=== PATIENT | male | born 1955 | race Caucasian/White ===

== ENCOUNTER 2017-11-09 07:26 | Emergency (ER) | payer BC ==
--- NOTE | 2017-11-09 07:55 | Emergency Department Record ---
History of Present Illness - General Chief Complaint: Dizziness Stated Complaint: BLURRED VISION, OFF BALANCE Time Seen by Provider: 11/09/17 07:54 Source: Patient Mode of Arrival: Ambulatory Limitations: No limitations - History of Present Illness Initial Comments: The patient is here due to a 3 day hx of first double vision then feeling like his balance is off. The patient states the diplopia has resolved but the problem with his balance has persisted. There was a mild head pressure behind his L eye yesterday but that has resolved. The patient states now the symptoms are only with walking and he has to concentrate to keep his balance. There is no reported CP, SOB, blurred vision, or any speech difficulties, swallowing issues or arm or leg weakness. He denies any hx of similar issues. The patient does take a baby ASA daily but did not take it today. MD Complaint: Dizziness, Difficulty walking Onset/Timin -: Days(s) Timing: Sudden onset Description: Difficulty walking, Off-balance, Other History of Same: Yes (2 years ago) History of Trauma: No Severity: Moderate Improves With: Nothing Worsens With: Nothing Associated Symptoms: Denies other symptoms - [place] Coma Scale Eye Response: (4) Open spontaneously Motor Response: (6) Obeys commands Verbal Response: (5) Oriented [place] Total: 15 - Related Data Home Medications Medication Instructions Recorded Confirmed Last Taken Atorvastatin Calcium 40 mg PO QHS 11/09/17 11/09/17 Unknown Bp Med-Unsure Of Name 11/09/17 Unknown Glipizide 10 mg PO BID 11/09/17 11/09/17 Unknown Metformin HCl 500 mg PO BID 11/09/17 11/09/17 Unknown Metoprolol Succinate [Toprol Xl] 50 mg PO BID 11/09/17 11/09/17 Unknown Tamsulosin HCl [Flomax] 0.4 mg PO DAILY 11/09/17 11/09/17 Unknown Allergies Allergy/AdvReac Type Severity Reaction Status Date / Time No Known Drug Allergies Allergy Verified 11/09/17 07:28 Travel Screening - Travel/Exposure Within Last 30 Days Have you traveled within the last 30 days?: No - Travel/Exposure Within Last Year Have you traveled outside the [place] in the last year?: No - Additonal Travel Details Have you been exposed to anyone with a communicable illness?: No - Travel Symptoms Symptom Screening: None Review of Systems Constitutional: Denies: Chills, Fever Eyes: Reports: Vision change. Denies: Eye discharge, Eye pain ENT: Denies: Congestion Respiratory: Denies: Cough, Dyspnea Cardiovascular: Denies: Arrhythmia, Chest pain Endocrine: Denies: Fatigue Gastrointestinal: Denies: Abdominal pain Genitourinary: Denies: Dysuria Musculoskeletal: Denies: Arthralgia Past Medical History - SOCIAL HISTORY Smoking Status: Current every day smoker Alcohol Use: Occasional Drug Use: None - RESPIRATORY Hx Respiratory Disorders: No - CARDIOVASCULAR Hx Cardio Disorders: Yes Hx Hypertension: Yes - NEURO Hx Neuro Disorders: No - GI Hx GI Disorders: Yes Hx Reflux: Yes - Hx Genitourinary Disorders: Yes Hx Prostate Problems: Yes - ENDOCRINE Hx Endocrine Disorders: Yes Hx Diabetes: Yes (type 2) - MUSCULOSKELETAL Hx Musculoskeletal Disorders: No - PSYCH Hx Psych Problems: No - HEMATOLOGY/ONCOLOGY Hx Hematology/Oncology Disorders: No Family Medical History Any Significant Family History?: Yes Hx Diabetes: Grandparents Hx Heart Disease: Father Physical Exam - General General Appearance: Alert, Oriented x3, Cooperative, No acute distress - Head Head exam: Atraumatic, Normocephalic, Normal inspection - Eye Eye exam: Normal appearance, PERRL, EOMI - ENT ENT exam: Normal exam, Mucous membranes moist, Normal external ear exam, Normal orophraynx, TM's normal bilaterally Throat exam: Normal inspection. negative: Tonsillar erythema, Tonsillar exudate - Neck Neck exam: Normal inspection, Full ROM. negative: Lymphadenopathy, Meningismus , Tenderness - Respiratory Respiratory exam: Normal lung sounds bilaterally. negative: Respiratory distress - Cardiovascular Cardiovascular Exam: Regular rate, Normal rhythm, Normal heart sounds - GI/Abdominal GI/Abdominal exam: Soft, Normal bowel sounds. negative: Tenderness - Extremities Extremities exam: Normal inspection, Full ROM, Normal capillary refill. negative: Tenderness - Neurological Neurological exam: Alert, Normal gait, Oriented X3, Other (There is normal finger to nose testing but the patient does have a mildy Pos Rhomberg test.). negative: Abnormal gait, Motor sensory deficit Course Vital Signs 11/09/17 07:38 Temperature 97.7 F Pulse Rate 59 L Respiratory 16 Rate Blood Pressure 163/96 Pulse Ox 100 - Reevaluation(s) Reevaluation #1: I did discuss the issues with the patient and the need for hospital admission for the cerebellar CVA and he did agree to the transfer to [facility]. We are attempting to contact the stroke team presently. 11/09/17 09:26 Reevaluation #2: The patient does accept the plan for the admission to [facility]. I did discuss the case with Dr. Zhang who is the Stroke Neurologist at [facility] and he does accept the patient for admission. I did offer the patient an ambulance ride to [facility] but he is refusing and states his will drive him there. I did discuss the risks of refusing the ambulance and he does accept the risks. 11/09/17 09:38 Reevaluation #3: The patient is doing well. 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 The patient has been fairly uncooperative while in the ED due to not being happy about being here in the ED and needing to be transferred. 11/09/17 10:00 Reevaluation #4: The patient has been ambulating in the ED with no significant difficulty. We are still waiting on a bed at [facility] prior to completing his transfer. 11/09/17 13:00 Reevaluation #5: I did again discuss the need to be transferred by ambulance but the patient AGAIN is refusing. I explained by NOT taking the ambulance the patient could get lost, not correctly find his room, his CVA could worsen and he could become disabled and even . The patient understands and accepts the risks and will sign an AMA form attesting to that. 11/09/17 14:39 Medical Decision Making - Data Complexity MDM Data: Labs Ordered and/or Reviewed, X-Ray Ordered and/or Reviewed, EKG Ordered and/or Reviewed - Lab Data Result diagrams: 11/09/17 08:15 11/09/17 08:15 - EKG Data -: EKG Interpreted by Me EKG: No Acute Changes - Radiology Data Radiology results: Report reviewed (CXR: Neg Head CT: age indeterminent infarct L inferior cerebellar hemisphere, O/W neg for acute changes.) Disposition Disposition: Transfer Clinical Impression: CVA (cerebral vascular accident) Qualifiers: CVA mechanism: unspecified Qualified Code(s): I63.9 - Cerebral infarction, unspecified Disposition: Acute Care Hospital Transfer Transfer To: [facility] Reason For Transfer: Stroke Accepting Physician: Rosick Time Discussed w/Accepting Physician: 09:40 Condition: (2) Stable Forms: Patient Portal Access Time of Disposition: 09:40 Quality - Quality Measures Quality Measures: N/A - Blood Pressure Screening View Details: Yes Does Patient Have Any of the Following: Active Dx of HTN Blood Pressure Classification: Pre-Hypertensive BP Reading Systolic Measurement: 139 Diastolic Measurement: 83 Screening for High Blood Pressure: Patient Exclusion, Hx of HTN [G9744]
[2017-11-09 08:27] LABS: BASO % 0.4 % (0-6); EOS % 2.9 % (0-6); HEMATOCRIT 46.6 % (42.0-52.0); HEMOGLOBIN 16.9 gm/dl (14.0-18.0); LYMPH % 23.9 % (16-45); MEAN CELL VOLUME 86.8 fl (81-97); MEAN CORPUSCULAR HEMOGLOBIN 31.5 pg (27-33); MEAN CORPUSCULAR HGB CONC 36.3 g/dl (32-36); MEAN PLATELET VOLUME 10.4 fl (7.4-10.4); MONO % 6.8 % (0-9); PLATELET COUNT 166 K/uL (130-400); RED BLOOD COUNT 5.37 M/uL (4.40-5.70); RED CELL DISTRIBUTION WIDTH 12.4 % (11.5-14.5); WHITE BLOOD COUNT W/O DIFF 8.2 K/uL (4.2-12.2)
[2017-11-09 08:34] LABS: BLOOD UREA NITROGEN 17 mg/dL (8-23); CREATININE 0.8 mg/dL (0.7-1.2); EST GLOMERULAR FILTRATION RATE > 60 mL/min
[2017-11-09 08:35] LABS: TOTAL PROTEIN 7.3 g/dL (6.6-8.7)
[2017-11-09 08:37] LABS: GLUCOSE,RANDOM 320 mg/dL (74-109)
[2017-11-09 08:38] LABS: INR 0.9; PARTIAL THROMBOPLASTIN TIME 26.6 SECONDS (24.5-39.1); PROTHROMBIN TIME (PATIENT) 9.6 SECONDS (9.5-12.1)
[2017-11-09 08:39] LABS: ALT/SGPT 22 U/L (<41); AST/SGOT 17 U/L (10.0-50.0)
[2017-11-09 08:40] LABS: ALB/GLOB RATIO 1.7 (1.1-1.8); ALBUMIN 4.6 g/dL (4.0-5.0); ALKALINE PHOSPHATASE 108 U/L (40-129); CREATINE PHOSPHOKINASE 50 U/L (39-308)
[2017-11-09 08:42] LABS: CKMB 1.2 ng/mL (<6.73)
[2017-11-09] MEDS ORDERED: ASPIRIN 325 MG TABLET PO ONE (09:04)
[2017-11-09] MEDS ORDERED: ACETAMINOPHEN 325 MG TAB PO ONE (13:31)
--- NOTE | 2017-11-09 14:41 | RADIOLOGY REPORT ---
EXAM: CHEST, TWO VIEWS HISTORY: DIFFICULTY IN BREATHING. TECHNIQUE: Frontal and lateral views of the chest were performed. FINDINGS: The heart size is normal. No pulmonary vascular congestion. No infiltrate or pleural effusion. Mild degenerative changes of the thoracic spine. IMPRESSION: NO ACUTE PULMONARY DISEASE PROCESS. JOB NUMBER: [id number] MTDD
--- NOTE | 2017-11-09 14:44 | CT SCAN REPORT ---
EXAM: CT OF THE BRAIN WITHOUT CONTRAST HISTORY: ATAXIA. TECHNIQUE: Sequential axial images were obtained from the foramen magnum to the vertex without contrast administration. FINDINGS: The brain volume is normal. There is an age indeterminate area of infarction in the inferior left cerebellar hemisphere. No hemorrhage, mass effect, or midline shift. There is mild periventricular small vessel ischemic change. The orbits, paranasal sinuses, and mastoid air cells are normal. IMPRESSION: 1. AGE INDETERMINATE AREA OF INFARCTION IN THE INFERIOR LEFT CEREBELLAR HEMISPHERE. 2. MILD PERIVENTRICULAR SMALL VESSEL ISCHEMIC CHANGE. JOB NUMBER: [id number] [facility]
== END 2017-11-09 14:47 | disposition short-term general hospital (02) ==
LOC: ER 07:26
DX: I63.9 Cerebral infarction, unspecified (principal); H53.2 Diplopia; R26.0 Ataxic gait; E11.9 Type 2 diabetes mellitus without complications; I10 Essential (primary) hypertension; Z79.84 Long term (current) use of oral hypoglycemic drugs; F17.210 Nicotine dependence, cigarettes, uncomplicated
CPT/HCPCS: 70450; 71046; 80053; 82550; 82553; 84484; 85025; 85610; 85730; 93005; 93010; 99285

== ENCOUNTER 2017-11-12 19:22 | Emergency (ER) | payer BC ==
[2017-11-12 19:33] LABS: BASO % 0.5 % (0-6); GRAN % 52.6 % (47-80); HEMOGLOBIN 16.3 gm/dl (14.0-18.0); LYMPH % 36.4 % (16-45); MEAN CORPUSCULAR HEMOGLOBIN 31.5 pg (27-33); MEAN CORPUSCULAR HGB CONC 36.2 g/dl (32-36); MEAN PLATELET VOLUME 10.1 fl (7.4-10.4); MONO % 7.5 % (0-9); PLATELET COUNT 170 K/uL (130-400); RED BLOOD COUNT 5.17 M/uL (4.40-5.70); RED CELL DISTRIBUTION WIDTH 12.6 % (11.5-14.5); WHITE BLOOD COUNT W/O DIFF 9.6 K/uL (4.2-12.2)
[2017-11-12 19:44] LABS: BLOOD UREA NITROGEN 23 mg/dL (8-23); EST GLOMERULAR FILTRATION RATE > 60 mL/min; TOTAL PROTEIN 7.1 g/dL (6.6-8.7)
[2017-11-12 19:46] LABS: GLUCOSE,RANDOM 335 mg/dL (74-109)
[2017-11-12 19:49] LABS: ALB/GLOB RATIO 1.5 (1.1-1.8); ALBUMIN 4.3 g/dL (4.0-5.0); ALKALINE PHOSPHATASE 100 U/L (40-129); ALT/SGPT 23 U/L (<41); AST/SGOT 18 U/L (10.0-50.0)
[2017-11-12 19:50] LABS: INR 0.9; PARTIAL THROMBOPLASTIN TIME 24.1 SECONDS (24.5-39.1); PROTHROMBIN TIME (PATIENT) 9.4 SECONDS (9.5-12.1)
--- NOTE | 2017-11-12 19:58 | Emergency Department Record ---
History of Present Illness - General Chief complaint: Weakness Stated complaint: STROKE SYMPTOMS Time Seen by Provider: 11/12/17 19:53 Source: Patient Mode of Arrival: Ambulatory Limitations: No limitations - History of Present Illness Initial comments: pt just released 2 days ago for a stroke from [facility]. he returns today for an increase in .symptoms w double vision and ataxia that started 30min prior to arrival Complaint: Difficulty walking Onset/Timin -: Minutes(s) Location: Generalized Consistency: Getting worse Associated Symptoms: Confusion - [place] Coma Scale Eye Response: (4) Open spontaneously Motor Response: (6) Obeys commands Verbal Response: (5) Oriented [place] Total: 15 - Symptoms of Stroke Onset of Symptoms Date: 11/12/17 Onset of Symptoms Time: 19:00 Symptoms of stroke: Numbness, Onset of Confusion, Unable to Think Clearly, Unable to Walk, Unsteady When Walking - Related Data Home Medications Medication Instructions Recorded Confirmed Last Taken Losartan Potassium 100 mg PO BID 11/12/17 11/12/17 11/12/17 Allergies Allergy/AdvReac Type Severity Reaction Status Date / Time No Known Drug Allergies Allergy Verified 11/09/17 07:28 Travel Screening - Travel/Exposure Within Last 30 Days Have you traveled within the last 30 days?: No - Travel Symptoms Symptom Screening: Weakness Review of Systems Reviewed: No additional complaints except as noted below Constitutional: Reports: As per HPI. Denies: Chills, Fever, Malaise, Night sweats, Weakness, Weight change Eyes: Reports: As per HPI. Denies: Eye discharge, Eye pain, Photophobia, Vision change ENT: Reports: As per HPI. Denies: Congestion, Dental pain, Ear pain, Epistaxis , Hearing loss, Throat pain Respiratory: Reports: As per HPI. Denies: Cough, Dyspnea, Hemoptysis, Stridor, Wheezes Cardiovascular: Reports: As per HPI. Denies: Arrhythmia, Chest pain, Dyspnea on exertion, Edema, Murmurs, Orthopnea, Palpitations, Paroxysmal nocturnal dyspnea, Rheumatic Fever, Syncope Endocrine: Reports: As per HPI. Denies: Fatigue, Heat or cold intolerance, Polydipsia, Polyuria Gastrointestinal: Reports: As per HPI. Denies: Abdominal pain, Constipation, Diarrhea, Hematemesis, Hematochezia, Melena, Nausea, Vomiting Genitourinary: Reports: As per HPI. Denies: Dysuria, Frequency, Hematuria, Incontinence, Retention, Testicular pain, Testicular mass, Urgency Musculoskeletal: Reports: As per HPI. Denies: Arthralgia, Back pain, Gout, Joint swelling, Myalgia, Neck pain Skin: Reports: As per HPI. Denies: Bruising, Change in color, Change in hair/ nails, Lesions, Pruritus, Rash Neurological: Reports: As per HPI, Abnormal gait, Confusion. Denies: Headache, Numbness, Paresthesias, Seizure, Tingling, Tremors, Vertigo, Weakness Psychiatric: Reports: As per HPI. Denies: Anxiety, Auditory hallucinations, Depression, Homicidal thoughts, Suicidal thoughts, Visual hallucinations Hematological/Lymphatic: Reports: As per HPI. Denies: Anemia, Blood Clots, Easy bleeding, Easy bruising, Swollen glands Past Medical History - SOCIAL HISTORY Smoking Status: Current every day smoker Alcohol Use: Occasional Drug Use: None - RESPIRATORY Hx Respiratory Disorders: No - CARDIOVASCULAR Hx Cardio Disorders: Yes Hx Hypertension: Yes - NEURO Hx Neuro Disorders: Yes Hx CVA: Yes - GI Hx GI Disorders: Yes Hx Reflux: Yes - Hx Genitourinary Disorders: Yes Hx Prostate Problems: Yes - ENDOCRINE Hx Endocrine Disorders: Yes Hx Diabetes: Yes (type 2) - MUSCULOSKELETAL Hx Musculoskeletal Disorders: No - PSYCH Hx Psych Problems: No - HEMATOLOGY/ONCOLOGY Hx Hematology/Oncology Disorders: No Family Medical History Any Significant Family History?: Yes Hx Diabetes: Grandparents Hx Heart Disease: Father Physical Exam - General General Appearance: Alert, Oriented x3, Cooperative, Moderate distress - Head Head exam: Normal inspection - Eye Eye exam: Normal appearance, PERRL, EOMI Pupils: Normal accommodation - ENT ENT exam: Normal exam, Mucous membranes moist, Normal external ear exam, Normal orophraynx, TM's normal bilaterally Ear exam: Normal external inspection. negative: External canal tenderness Nasal Exam: Normal inspection. negative: Discharge, Sinus tenderness Mouth exam: Normal external inspection, Tongue normal Teeth exam: Normal inspection. negative: Dental caries Throat exam: Normal inspection. negative: Tonsillar erythema, Tonsillar exudate - Neck Neck exam: Normal inspection, Full ROM. negative: Tenderness - Respiratory Respiratory exam: Normal lung sounds bilaterally. negative: Respiratory distress - Cardiovascular Cardiovascular Exam: Regular rate, Normal rhythm, Normal heart sounds - GI/Abdominal GI/Abdominal exam: Soft, Normal bowel sounds. negative: Tenderness - Rectal Rectal exam: Deferred - exam: Deferred - Extremities Extremities exam: Normal inspection, Full ROM, Normal capillary refill. negative: Tenderness - Back Back exam: Reports: Normal inspection, Full ROM. Denies: Muscle spasm, Rash noted, Tenderness - Neurological Neurological exam: Alert, CN II-XII intact, Motor sensory deficit (drift, ataxia ), Oriented X3. negative: Normal gait - Psychiatric Psychiatric exam: Normal affect, Normal mood - Skin Skin exam: Dry, Intact, Normal color, Warm Stroke Assessment - NIH Stroke Scale 1a. Level of Consciousness: (0) Alert 1b. LOC Questions: (0) Answers Correctly 1c. LOC Commands: (0) Performs Tasks Correctly 2. Best Gaze: (0) Normal 3. Visual: (1) Partial Hemianopia 4. Facial Palsy: (0) Normal Symmetrical Movement 5a. Motor Arm Left: (1) Drift 5b. Motor Arm Right: (0) No Drift 6a. Motor Leg Left: (1) Drift 6b. Motor Leg Right: (1) Drift 7. Limb Ataxia: (2) Present 2 Limbs 8. Sensory: (0) Normal 9. Best Language: (0) No Aphasia 10. Dysarthria: (0) Normal 11. Extinction/Inattention: (0) No Abnormality NIH Stoke Scale Total: 6 NIH Stroke Scale Date: 11/12/17 NIH Stroke Scale Time: 20:00 Course Vital Signs 11/12/17 11/12/17 19:26 19:48 Temperature 97.9 F Pulse Rate [ 74 75 Scleroscope Tester ] Respiratory 20 18 Rate Blood Pressure 146/86 137/79 [Left Arm] Pulse Ox 96 96 Medical Decision Making - Lab Data Result diagrams: 11/12/17 19:25 11/12/17 19:25 Lab Results 11/12/17 11/12/17 11/12/17 Range/Units 19:25 19:25 19:25 WBC 9.6 (4.2-12.2) K/uL RBC 5.17 (4.40-5.70) M/uL Hgb 16.3 (14.0-18.0) gm/dl Hct 45.0 (42.0-52.0) % MCV 87.0 (81-97) fl MCH 31.5 (27-33) pg MCHC 36.2 H (32-36) g/dl RDW 12.6 (11.5-14.5) % Plt Count 170 (130-400) K/uL MPV 10.1 (7.4-10.4) fl Gran % 52.6 (47-80) % Lymphocytes % 36.4 (16-45) % Monocytes % 7.5 (0-9) % Eosinophils % 3.0 (0-6) % Basophils % 0.5 (0-6) % PT 9.4 L (9.5-12.1) SECONDS INR 0.9 APTT 24.1 L (24.5-39.1) SECONDS D-Dimer 0.58 (0-0.59) mg/L FEU Sodium 136 (136-145) mmol/L Potassium 4.0 (3.4-4.5) mmol/L Chloride 97 L (98-107) mmol/L Carbon Dioxide 23.0 (22-29) mmol/L Anion Gap 16.0 (7-16) BUN 23 (8-23) mg/dL Creatinine 1.0 (0.7-1.2) mg/dL Estimated GFR > 60 mL/min Random Glucose 335 H (74-109) mg/dL Calcium 9.6 (8.8-10.2) mg/dL Total Bilirubin 0.40 (0.2-1.0) mg/dL AST 18 (10.0-50.0) U/L ALT 23 (<41) U/L Alkaline Phosphatase 100 (40-129) U/L Total Protein 7.1 (6.6-8.7) g/dL Albumin 4.3 (4.0-5.0) g/dL Globulin 2.8 (1.4-4.8) gm/dL Albumin/Globulin Ratio 1.5 (1.1-1.8) Disposition Disposition: Transfer Clinical Impression: Cerebellar stroke, acute Disposition: Acute Care Hospital Transfer Transfer To: [facility] Reason For Transfer: stroke Accepting Physician: dr meron oneill Time Discussed w/Accepting Physician: 20:10 Forms: Patient Portal Access Quality - Quality Measures Quality Measures: N/A - Blood Pressure Screening Does Patient Have Any of the Following: No Blood Pressure Classification: Pre-Hypertensive BP Reading Systolic Measurement: 137 Diastolic Measurement: 79 Screening for High Blood Pressure: < Pre-Hypertensive BP, F/U Documented > [ G8950] Pre-Hypertensive Follow-up Interventions: Follow-up with rescreen every year.
--- NOTE | 2017-11-13 10:10 | CT SCAN REPORT ---
EXAM: CT OF THE HEAD WITHOUT CONTRAST HISTORY: DOUBLE VISION. DISORIENTATION. TECHNIQUE: Routine noncontrast CT examination of the head was performed. Comparison: CT of the head without contrast dated 11/09/17. FINDINGS: There is redemonstration of an area of hypodensity within the inferior aspect of the left cerebellar hemisphere. This measures approximately 4.4 cm AP x 2.6 cm craniocaudad x 3.7 cm transverse. This appears more pronounced anteriorly than on the prior examination. On the prior examination this area measures 2.8 x 1.5 x 2.3 cm. This may cause slight partial effacement of the left lateral aspect of the fourth ventricle. Evaluation of the danilo near this level is limited by artifact. No other area of abnormally increased or decreased attenuation is noted throughout the brain substance. No abnormal extraaxial fluid collection is seen. The subarachnoid spaces at the level of left cerebellar hemisphere infarct are effaced. Otherwise the subarachnoid spaces are stable. There is a tiny retention cyst versus mucosal thickening in the right maxillary sinus. The visualized paranasal sinuses and mastoid air cells are otherwise clear. The orbits as visualized are unremarkable. IMPRESSION: 1. INTERVAL ENLARGEMENT OF THE AREA OF HYPODENSITY WITHIN THE INFERIOR ASPECT OF THE LEFT CEREBELLAR HEMISPHERE CONSISTENT WITH EXTENSION OF INFARCT. THIS CAUSES MINIMAL PARTIAL EFFACEMENT OF THE LEFT LATERAL MARGIN OF THE FOURTH VENTRICLE. NO NEW HEMORRHAGE. 2. NO OTHER SIGNIFICANT CHANGE. JOB NUMBER: [id number] [facility]TDD
== END 2017-11-12 20:54 | disposition short-term general hospital (02) ==
LOC: ER 19:22
DX: I63.9 Cerebral infarction, unspecified (principal); H53.2 Diplopia; R26.0 Ataxic gait; R41.0 Disorientation, unspecified; I10 Essential (primary) hypertension; F17.210 Nicotine dependence, cigarettes, uncomplicated; E11.9 Type 2 diabetes mellitus without complications; Z79.84 Long term (current) use of oral hypoglycemic drugs
CPT/HCPCS: 70450; 80053; 85025; 85379; 85610; 85730; 93005; 93010; 99285